=== PATIENT | female | born 1985 ===

== ENCOUNTER 2016-12-03 13:50 | Emergency (ER) | payer MEDICAID, OTHER ==
[2016-12-03 13:51] VITALS: BMI 32.8
[2016-12-03 13:59] VITALS: BP 125/73; PULSE 100; RESP 20; TEMP 98.6; O2SAT 98
--- NOTE | 2016-12-03 14:28 | C.PDOC ---
History Of Present Illness The patient reports that her daughter developed scabies several weeks ago and was instructed to come to the ED for evaluation. Patient reports that she has no complaints at this time, and denies rash or itching. Time Seen by Provider: 12/03/16 14:04 Chief Complaint (Nursing): Medical Clearance History Per: Patient History/Exam Limitations: no limitations Onset/Duration Of Symptoms: Days Past Medical History Reviewed: Historical Data, Nursing Documentation, Vital Signs Vital Signs: Last Vital Signs Temp 98.6 F 12/03/16 13:55 Pulse 100 H 12/03/16 13:55 Resp 20 12/03/16 13:55 BP 125/73 12/03/16 13:55 Pulse Ox 98 12/03/16 14:29 - Medical History PMH: Gall Bladder Disease, Kidney Stones Surgical History: Cholecystectomy - [facility] Procedures DELIVERY OF PRODUCTS OF CONCEPTION, EXTERNAL APPROACH (10/04/15) LAPAROSCOPIC CHOLECYSTECTOMY (09/11/14) MONITORING OF POC, CARDIAC RATE, BOTTLE FILLER APPROACH (10/04/15) Family History: States: No Known Family Hx - Social History Hx Alcohol Use: No Hx Substance Use: No Review Of Systems Except As Marked, All Systems Reviewed And Found Negative. Constitutional: Negative for: Fever, Chills Gastrointestinal: Negative for: Nausea, Vomiting Skin: Negative for: Rash Neurological: Negative for: Weakness, Numbness Physical Exam - Physical Exam Appears: Non-toxic, No Acute Distress Skin: Warm, Dry, No Rash Head: Atraumatic, Normacephalic Eye(s): bilateral: Normal Inspection, PERRL, EOMI Oral Mucosa: Moist Throat: Normal, No Erythema, No Exudate, No Drooling Neck: Normal, Normal ROM, Supple Chest: Symmetrical, No Tenderness Cardiovascular: Rhythm Regular, No Murmur Respiratory: Normal Breath Sounds, No Rales, No Rhonchi, No Stridor, No Wheezing Extremity: Normal ROM, No Swelling Neurological/Psych: Oriented x3, Normal Speech, Normal Motor ED Course And Treatment O2 Sat by Pulse Oximetry: 98 (RA ) Pulse Ox Interpretation: Normal Medical Decision Making Medical Decision Making: NOTE: Patient exam shows no signs of scabies or rash. Patient was exposed to scabies as her daughter was diagnosed with it. Patient will be given prescription for a dose of Permethrin. Disposition - Disposition Referrals: Sisi Cosby MD [Medical Doctor] - Disposition: HOME/ ROUTINE Disposition Time: 14:21 Condition: GOOD Additional Instructions: THERE IS NO EVIDENCE OF SCABIES ON THE PATIENT'S EXAM. WILL GIVE A DOSE OF MEDICATION TO USE THE PATIENT WAS EXPOSED BUT SHE IS MEDICALLY CLEARED. Prescriptions: Permethrin 5% [Permethrin 5% Cream] 60 gm EXT ONCE #2 tube Instructions: Scabies (ED) Forms: [facility] [facility] (Czech) - Clinical Impression Clinical Impression: Scabies exposure - PA / [employer] / Resident Statement MD/DO has reviewed & agrees with the documentation as recorded. - Scribe Statement The provider has reviewed the documentation as recorded by the Scribe Ngoc Del Valle All medical record entries made by the Scribe were at my direction and personally dictated by me. I have reviewed the chart and agree that the record accurately reflects my personal performance of the history, physical exam, medical decision making, and the department course for this patient. I have also personally directed, reviewed, and agree with the discharge instructions and disposition.
== END 2016-12-03 14:32 | disposition home or self-care (01) ==
LOC: C.ER 13:50
DX: Z09 Encounter for follow-up examination after completed treatment for conditions other than malignant neoplasm (principal)